=== PATIENT | male | born 1990 | race Hispanic/Latino ===

== ENCOUNTER 2017-04-05 09:15 | Inpatient (IN) | payer OTHER ==
[~2017-04-05] VITALS: Ht 175.3 cm; Wt 90.9 kg
[2017-04-05 09:34] VITALS: BP 164/109; PULSE 92; RESP 12; O2SAT 99
--- NOTE | 2017-04-05 09:47 | ED.REPORT ---
HPI-Hand Prob/Inj Date of Service Apr 05, 2017 ED Provider: Jose Bradley MD The pt is a 27 y/o male presenting to the ED due to R hand pain. The pt punctured his R 5th finger w/ a piece of metal and it began to swell and become red later than night. The pain then began to spread to the rest of his R hand. He reports also experiencing generalized myalgias. Denies chills, fevers, or diaphoresis. The pain in his hand is quite prominent and extends up to his distal forearm. Nursing Notes Stated Complaint: RIGHT ARM PAIN Chief Complaint: R hand pain Nursing Notes Reviewed: Yes Allergies: Coded Allergies: cefaclor (Verified Allergy, Unknown, CHILDHOOD ALLERGY, 04/05/17) No Active Prescriptions or Reported Meds General Time Seen by Provider: 10:20 Chief Complaint Hand pain right Hx Obtained From: Patient Arrived By: Walk-in Onset Occurred: Yesterday Symptom Duration: Since onset Recent Healthcare: No recent hospitalization, Recent doctor visit Similar Sx Previous: No Past Medical History Past Medical History None reported Past Surgical History None reported Smoking History Former Smoker Social History Pt uses a vape and is in the Other Social History: Good social support Ambulatory Status Independent Review of Systems R 5th finger pain, erythema, and swelling; Decreased ROM of R 5th finger; Constitutional: Denies: Chills, Fever Musculoskeletal: Reports: Extremity pain (R hand ), Myalgia Skin: Denies Diaphoresis Complete sys rev & neg: except as marked. Physical Exam Initial Vital Signs Vital Signs (First) Date Time Temp Pulse Resp B/P Pulse Ox O2 Delivery O2 Flow Rate FiO2 04/05/17 09:34 37.0 92 12 164/109 99 Room Air Initial VS: Reviewed General/Constitutional: Well-developed, Well-nourished Head / Eyes: Atraumatic, Normocephalic, PERRL ENT: Mucous membranes moist, Conjunctiva normal, No scleral icterus Neck: Supple, Non-tender, Full range of motion Respiratory: Breath sounds normal, Clear to auscultation, No respiratory distress Cardiovascular: Regular rate & rhythm, Heart sounds normal, Intact distal pulses Neurologic: Alert, Oriented, Nonfocal Psychiatric: Mood/affect normal, Behavior normal, Normal thought content Wrist / Hand: No deformity, Neurologic intact, Vascular intact Right Wrist: Positive: Tenderness present... (Moderate) Pinpoint entry point at palmar crease of MCP joint of 5th finger of the R hand w/ surrounding erythema, and w/ intense pain to minimal movement Pain w/ movement of R 4th finger as well Interpretation & Diagnostics Lab Results Interpretation Result Diagram: 04/05/17 1018 04/05/17 1018 Test 04/05/17 10:18 White Blood Count 10.5th/mm3 (3.8-10.1) Red Blood Count 5.38mil/mm3 (4.40-5.80) Hemoglobin 16.1g/dL (13.8-17.2) Hematocrit 44.8% (41.0-50.0) Mean Corpuscular Volume 83.3fL (81-100) Mean Corpuscular Hemoglobin 29.9pg (27.0-35.0) Mean Corpuscular Hemoglobin Concent 35.9% (32.0-37.0) Red Cell Distribution Width 12.3% (12.3-15.4) Platelet Count 251bil/L (150-400) Neutrophils (%) (Auto) 82.9% (40-74) Lymphocytes (%) (Auto) 8.6% (14-46) Monocytes (%) (Auto) 7.9% (4-12) Eosinophils (%) (Auto) 0.2% (0-5) Basophils (%) (Auto) 0.1% (0-3) Sodium Level 136mEq/L (134-144) Potassium Level 4.0mEq/L (3.5-5.2) Chloride Level 96mEq/L (97-108) Carbon Dioxide Level 20mmol/L (18-29) Blood Urea Nitrogen 9mg/dL (6-20) Creatinine 0.78mg/dL (0.76-1.27) Estimat Glomerular Filtration Rate 128mL/min (>59) Glucose Level 122mg/dL (60-99) Lactic Acid Level 2.5mmol/L (0.4-2.0) Calcium Level 9.0mg/dL (8.5-10.1) Total Bilirubin 0.9mg/dL (0.0-1.2) Aspartate Amino Transf (AST/SGOT) 36U/L (0-50) Alanine Aminotransferase (ALT/SGPT) 34U/L (0-44) Alkaline Phosphatase 105U/L (25-150) Total Protein 7.9g/dL (6.4-8.4) Albumin 4.5g/dL (3.4-5.0) X-Ray Interpretation Xray Interpretation: IMPRESSION: No radiopaque soft tissue foreign bodies. No acute bony injuries of the right hand. Dictated by: Jairo Sanchez M.D. on 04/05/2017 at 10:41 Approved by: Jairo Sanchez M.D. on 04/05/2017 at 10:42 X-Ray Ordered: Hand right Interpretation / Wet Read by: Interpret - ED physician Re-Eval/Medical Decision Med Decision/Clinical Course The patient was very reluctant to be hospitalized. He says that he does not really want to stay in the hospital. I told him multiple times that if he leaves he would be at great risk for permanent disability in his hand. Re-Evaluation/Progress : Time of Eval: 11:16 Re-Evaluation/Progress Note: Rechecked pt to examine his hand further. Discussed need for the pt to get his WBC levels tested in 6 hours as well as possible need for hand surgery. Informed pt of need for admission. Pt understands and agrees with plan for admission. All questions addressed. Consultation #1: Referral / Consult Name: Sanjay Townsend MD Consulted With: Surgeon Call Returned at: 11:12 Space Sciences Director: Will see patient Note: Discussed pt's case w/ Dr. Townsend, hand surgeon, who will see the pt tonight or tomorrow morning for further evaluation and possible need for surgery. He recommends testing the pt's WBC levels in 6 hours. Consultation #2: Referral / Consult Name: Mayelin White DO Consulted With: Hospitalist Call Returned at: 12:07 Space [employer] Director: Will see patient, Agrees with eval, Agrees with plan, Accepts admit Counseled Regarding: Diagnosis, Lab results, Need for admission Discharge & Departure Primary Impression: Tenosynovitis of finger and hand Disposition: ADMITTED TO HOSPITAL Discharge Condition All VS Reviewed: Yes Condition: Stable Referrals: Sanjay Townsend MD, Lucia C MD Scribe Attestation Portions of this note were transcribed by Diego Oconnell. I, Dr. Bradley personally performed the history, physical exam and medical decision-making; I reviewed and confirmed the accuracy of the information in the transcribed note. copies to: Sanjay Townsend MD; Felicitas Akers MD, Kirk H MD Apr 05, 2017 09:47 Diego Oconnell Apr 05, 2017 10:35
[2017-04-05] MEDS ORDERED: 0.9% Sodium Chloride 1,000 ML IV ONE ×2 (10:04→15:00)
[2017-04-05] MEDS ORDERED: Clindamycin Inj 900 MG in IV Premix 1 EACH IV ONE (10:05)
[2017-04-05] MEDS ORDERED: Meropenem Inj 500 MG in 0.9% Sodium Chloride 50 ML IV ONE (10:05)
[2017-04-05 10:29] LABS: BASOPHILS % (AUTO) 0.1 % (0-3); EOSINOPHILS % (AUTO) 0.2 % (0-5); MONOCYTES % (AUTO) 7.9 % (4-12); Mean Corpuscular Hemoglobin 29.9 pg (27.0-35.0); Mean Corpuscular Volume 83.3 fL (81-100); NEUTROPHILS % (AUTO) 82.9 % (40-74); Platelet Count 251 bil/L (150-400)
--- NOTE | 2017-04-05 10:43 | DRSVH ---
PROCEDURE: X-RAY RIGHT HAND, MINIMUM THREE VIEWS ([id number]) INDICATIONS: 27 year-old male with right hand puncture wound. TECHNIQUE: 3 views of the hand(s) acquired. COMPARISON: None. FINDINGS: Bones: No fractures or dislocations. Carpal bones are normally aligned. No bony erosions or destru ction. No suspicious bony lesions. Soft tissues: There is diffuse right fifth finger soft tissue swelling. No radiopaque soft tissue for eign bodies. IMPRESSION: No radiopaque soft tissue foreign bodies. No acute bony injuries of the right hand. Dictated by: Jairo Sanchez M.D. on 04/05/2017 at 10:41 Approved by: Jairo Sanchez M.D. on 04/05/2017 at 10:42
[2017-04-05 11:43] VITALS: BP 140/94; PULSE 98; RESP 16; O2SAT 98
[2017-04-05] MEDS ORDERED: Alum-Mag Hydrox-Simeth 30 mL Suspension PO PRN (12:10)
[2017-04-05] MEDS ORDERED: Ondansetron 2 mg/mL 2 mL Inj IVPUSH PRN (12:10)
[2017-04-05] MEDS ORDERED: Polyethylene Glycol (PEG) 17 Gm Powder PO PRN (12:10)
[2017-04-05] MEDS ORDERED: Acetaminophen IV 1,000 MG in IV Premix 1 EACH IV PRN (12:15)
[2017-04-05] MEDS ORDERED: Ketorolac 15 mg/mL Inj IVPUSH PRN (12:15)
[2017-04-05 12:53] VITALS: BP 146/91; PULSE 78; RESP 22; O2SAT 99
[2017-04-05] MEDS: 0.9% Sodium Chloride 1,000 ML IV SCH ×2 (12:54→17:03)
--- NOTE | 2017-04-05 13:04 | NUR ---
Admit to [facility] Pt arrived on [facility] at 1245 hrs. Alert and oriented x 3. PIV patent and asymptomatic. All personal possessions with pt. Pain is 3/10 per pt. Right 5 digit and hand is red and swollen. Small laceration noted at base of 5th digit on anterior aspect. Pt NPO as surgery today is possible.
--- NOTE | 2017-04-05 14:41 | PCM.HPMED ---
Subjective Date of Service Apr 05, 2017 Primary Provider: Admitting Physician: Mayelin White DO Primary Care Physician: Sam Attending Physician: Mayelin White DO Admit Status: From the Emergency Department Chief Complaint: Right hand pain History of Present Illness: This is a 27-year-old male with no particular past medical history presenting to the ER today due to a puncture wound that happened to him yesterday during the work. 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 He did not think much about it but noticed that it has more's swollen and became moderately erythematous last night. He states that the wound actually looked bigger in the a.m. and he came to the ER after friend advised him to get it checked. He states that he was unable to move his hand and fingers very well last night but this morning, after he came to the ER and received antibiotics, he is able to move his fingers better. He has no numbness and tingling. Hand surgeon Dr. Townsend is present in the room and explained to patient the possible operative procedure that he may perform. After discussing the case with the surgeon, patient opted to wait to to see if the pain would get worse or better overnight. In the ER patient's labs were fairly unremarkable white count is elevated minimally at 10.5. Patient is admitted to the [facility] [place] team for management of tenosynovitis of the right fifth finger. Patient was given clindamycin and meropenem IV. Patient is admitted to the [place] team with the orthopedic consult for possible hand open I&D by Dr. Townsend Review of Systems: Complete review of systems performed, pertinent positives and negatives per history of present illness, all other systems reviewed and are negative. 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 External ears without defect. Pupils equal, round, and reactive to light and accommodation. Anicteric sclerae, moist conjunctivae, and no lid lag. Oropharynx free of erythema and cobble stoning with moist mucosa. Neck: Supple with full range of motion. No jugular venous distension. No bruits. No lymphadenopathy or thyromegaly. Cardiovascular: Regular rate and rhythm with no murmurs, rubs, or gallops appreciated Pulmonary: Clear to auscultation bilaterally with no crackles, wheezes, or rhonchi. Normal respiratory effort with no use of accessory muscles. Abdomen: Bowel tones present. Soft, mildly tender diffusely, nondistended. No hepatosplenomegaly or masses appreciated. Extremities: No clubbing, cyanosis, edema, or lymphadenopathy appreciated. Skin: Normal temperature, turgor, and texture; no rash, ulcers, or subcutaneous nodules appreciated. Neurological: Cranial nerves grossly intact. Normal muscle strength, tone, and bulk. Reflexes, coordination, and sensory function within normal limits. No known gait impairment. Psychiatric: Normal mood and affect. Alert and oriented to person, place, and time. Swollen right pinky finger more erythematous on the medial side is a small puncture wound at the MCP joint tender to touch below the MCP and the soft tissue as well as abdominal the injury. He has no neuropathic signs is able to move the finger in all different directions which he says he was not able to do this morning. He is able to externally and internally deviated the hand and finger and hand appears to be more swollen however then the left hand Lab and Diagnostics Result Diagram: 04/05/17 1018 04/05/17 1018 Assessment & Plan Assessment #1. Acute synovitis of right fifth finger erythema and swelling, present on admission -- Continue Antibiotics meropenem, clindamycin -- Consult hand surgeon Dr. Townsend ER has already notified him, has seen the patient, plans to wait for surgery. patient will remain nothing by mouth. Repeat CBC and ESR and CRP at [address] Townsend wants to advance diet tonight if there is no decision to proceed with surgery. He will decide after following up on the labs and the patient whether to proceed with surgery or not -- Tylenol, morphine IV, ketorolac for pain control. He will medications oxycodone Tylenol and ibuprofen -- Nothing by mouth after midnight -- We will hold off on MRI, his injuries to acute and there may be too much edema Assessment #2 hand pain acute with another admission -- Pain control as above Assessment #3 Lactic acidosis present on admission -- 2.5 at the time of admission -- A liter of bolus fluids were given on the floor -- Continue IV hydration normal saline 100 mL/h -- Recheck lactic acid Assessment #4 Overweight pleasant and admission chronic -- Patient appears to be in healthy shape in spite of his BMI High-risk medications: IV morphine CODE STATUS: Full code Alternate decision-maker: Sister Jorgito Patient is admitted under Inpatient status with expected length of stay greater than 2 midnights due to severity of presenting symptoms, risk of adverse event, and complexity of treatment plan. Pain Evaluation: Adequate Pain Control Resuscitation Status: CPR: Attempt Resuscitation (Sr. Bull) Time spent 45 min Mayelin White DO Apr 05, 2017 14:41
[2017-04-05 17:01] LABS: BASOPHILS % (AUTO) 0.1 % (0-3); EOSINOPHILS % (AUTO) 0.2 % (0-5); MONOCYTES % (AUTO) 10.9 % (4-12); Mean Corpuscular Hemoglobin 29.9 pg (27.0-35.0); Mean Corpuscular Volume 83.4 fL (81-100); Platelet Count 244 bil/L (150-400)
[2017-04-05 17:41] VITALS: BP 149/91; PULSE 82; RESP 20; O2SAT 97
[2017-04-05] MEDS: Meropenem Inj 500 MG in 0.9% Sodium Chloride 50 ML IV SCH (19:55)
[2017-04-05 20:46] VITALS: BP 147/91; PULSE 89; RESP 20; O2SAT 97
--- NOTE | 2017-04-05 21:00 | NUR ---
Activity Dr Townsend gave OK for pt to eat after reviewing labs and since pt condition slightly improving. Pt now able to bend/move right 5th finger with more ease. Pain minimal with activity 08/06 and pt denies need for pain meds. Denies numbness, tingling and pt reports edema/redness unchanged. Pt was able to have dinner and then orders to be NPO at midnight.
[2017-04-06] MEDS: 0.9% Sodium Chloride 1,000 ML IV SCH (01:20)
[2017-04-06 01:29] VITALS: BP 133/87; PULSE 76; RESP 18; O2SAT 98
[2017-04-06] MEDS: Meropenem Inj 500 MG in 0.9% Sodium Chloride 50 ML IV SCH ×2 (04:05→11:36)
[2017-04-06 05:08] VITALS: BP 144/91; PULSE 80; RESP 18; O2SAT 98
[2017-04-06 06:04] LABS: Mean Corpuscular Hemoglobin 29.7 pg (27.0-35.0); Mean Corpuscular Volume 83.3 fL (81-100)
[2017-04-06 08:20] VITALS: BP 135/95; PULSE 76; RESP 20; O2SAT 98
[2017-04-06 12:04] VITALS: BP 138/82; PULSE 77; RESP 20; O2SAT 97
--- NOTE | 2017-04-06 13:46 | NUR ---
Social Work- Screening/Readiness for Discharge/Multidisciplinary Rounds Data: EMR reviewed. Pt is a 27 year old male admitted for flexor tenosynovitis per H&P. Pt's insurance is [employer]. Pt has no PCP listed. Pt's readmit risk score is not listed at this time. Pt's NOK is sister Jorgito. Pt discussed in multidisciplinary rounds, no SW needs identified in rounds. Pt is independent at baseline and no concerns related to pt's capacity for self-care SW met with pt at bedside regarding discharge plan, pt resides in [place], [facility]. Pt is independent at baseline and drives. Pt is looking into a PCP at this time but does not currently have one. Pt has no DPOA on file, declined information. Pt to either drive himself home or his sister will drive him. No anticipated d/c needs. SW will continue to follow. Assessment: Pt who is independent at baseline. Plan: Pt to either drive himself home or his sister will drive him. No anticipated d/c needs. SW will continue to follow. OMI [facility]
[2017-04-06] MEDS ORDERED: CLIN-78 PO (14:32)
[2017-04-06] MEDS ORDERED: LEVO750T9 PO (14:32)
[2017-04-06] MEDS ORDERED: LACT1CAP26 PO (14:33)
--- NOTE | 2017-04-06 14:35 | PCM.DIMED ---
Discharge Instructions Date of Service Apr 06, 2017 Dates of Hospitalization Apr 05, 2017 at 12:15 Call your provider Call your provider for: Fever or Chills, Shortness of breath, Bleeding, Chest pain, Vomitting, Excessive diarrhea, Weakness (unilateral), Other Patient Instructions Patient Instructions Follow up with hand surgeon Dr. Townsend in 7 days, his clinic # is [phone], call his office if you see any worsening of symptoms fevers, chills, hand pain or swelling prior to the appt. Please rest the hand till Friday, call Dr. Townsend's clinic for work instructions on Friday the 04/08/17 Follow-up plan Follow up with hand surgeon Dr. Townsend in 7 days, his clinic # is [phone], call his office if you see any worsening of symptoms fevers, chills, hand pain or swelling prior to the appt. Follow up with PCP at [facility] Residency clinic in 7-10 days Mayelin White DO Apr 06, 2017 12:48
--- NOTE | 2017-04-06 14:41 | PCM.DC.MED ---
Discharge Summary Date of Service Apr 06, 2017 Dates of Hospitalization Date of Hospital Admission Apr 05, 2017 at 12:15 Date of Discharge: Apr 06, 2017 Providers: Admitting Physician: Dat Ruiz DO Primary Care Physician: Sma Attending Physician: Dat Ruiz DO Diagnosis at Time of Discharge Diagnosis at Time of Discharge Tenosynovitis right hand and last finger, lactic acidosis Brief History This is a 27-year-old male with no particular past medical history presenting to the ER today due to a puncture wound that happened to him yesterday during the work. 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 He did not think much about it but noticed that it has more's swollen and became moderately erythematous last night. He states that the wound actually looked bigger in the a.m. and he came to the ER after friend advised him to get it checked. He states that he was unable to move his hand and fingers very well last night but this morning, after he came to the ER and received antibiotics, he is able to move his fingers better. He has no numbness and tingling. Hand surgeon Dr. Townsend is present in the room and explained to patient the possible operative procedure that he may perform. After discussing the case with the surgeon, patient opted to wait to to see if the pain would get worse or better overnight. In the ER patient's labs were fairly unremarkable white count is elevated minimally at 10.5. Patient is admitted to the [facility] under [place] team for management of tenosynovitis of the right fifth finger. Patient was given clindamycin and meropenem IV. Patient is admitted to the [place] team with the orthopedic consult for possible hand open I&D by Dr. Townsend [facility] Course Assessment #1. Acute synovitis of right fifth finger erythema and swelling, present on admission -- IV Antibiotics meropenem, clindamycin were given -- hand surgeon Dr. Townsend was consulted and he has seen the patient, and decided that patient can be managed with the conservative antibiotic management -- Tylenol, morphine IV, ketorolac for pain control. Patient did not take much medication during the stay Assessment #2 hand pain acute with another admission -- Pain control as above -- Patient did not need much pain medication during the stay, recommend that he takes Tylenol and ibuprofen at home -- Patient may resume working then his hand surgeon Dr. Tonwsend clears him Assessment #3 Lactic acidosis present on admission resolved -- 2.5 at the time of admission -- A liter of bolus fluids were given on the floor -- Continued IV hydration normal saline 100 mL/h -- Resolved on the day of admission Assessment #4 Overweight pleasant and admission chronic -- Patient appears to be in healthy shape in spite of his BMI High-risk medications: IV morphine CODE STATUS: Full code Alternate decision-maker: Sister Jorgito Patient is admitted under Inpatient status with expected length of stay greater than 2 midnights due to severity of presenting symptoms, risk of adverse event, and complexity of treatment plan. Exam Vital Signs (Last) Date Time Temp Pulse Resp B/P Pulse Ox O2 Delivery O2 Flow Rate FiO2 04/06/17 12:04 36.8 77 20 138/82 97 Room Air Exam General: No acute distress, frail elderly woman, appropriately interactive HEENT: Normocephalic, atraumatic. Neck: Supple with full range of motion. No jugular venous distension. No bruits. Cardiovascular: Regular rate and rhythm with no murmurs, rubs, or gallops appreciated Pulmonary: Clear to auscultation bilaterally with no crackles, wheezes, or rhonchi. Normal respiratory effort with no use of accessory muscles. Abdomen: Soft, nondistended Extremities: Swelling in the right hand has improved, range of movement has improved as well. Improved range of motion in right hand, Psychiatric: Normal mood and affect. Alert and oriented to person, place, and time. Neurological: 1+ reflexes and triceps Vascular: Radial pulses equal and symmetric Skin: Swollen right pinky finger more erythematous on the medial side is a small puncture wound at the MCP joint tender to touch below the MCP and the soft tissue as well as abdominal the injury. He has no neuropathic signs is able to move the finger in all different directions which he says he was not able to do this morning. He is able to externally and internally deviated the hand and finger and hand appears to be much improved in terms of swelling compared to yesterday. Test 04/05/17 16:52 04/05/17 17:36 04/06/17 05:52 Neutrophils (%) (Auto) 74.0% (40-74) Lymphocytes (%) (Auto) 14.7% (14-46) Monocytes (%) (Auto) 10.9% (4-12) Eosinophils (%) (Auto) 0.2% (0-5) Basophils (%) (Auto) 0.1% (0-3) Lactic Acid Level 0.8mmol/L (0.4-2.0) Total Bilirubin 1.6mg/dL (0.0-1.2) Aspartate Amino Transf (AST/SGOT) 28U/L (0-50) Alanine Aminotransferase (ALT/SGPT) 28U/L (0-44) Alkaline Phosphatase 91U/L (25-150) Total Protein 7.4g/dL (6.4-8.4) Albumin 4.0g/dL (3.4-5.0) White Blood Count 6.6th/mm3 (3.8-10.1) Red Blood Count 4.92mil/mm3 (4.40-5.80) Hemoglobin 14.6g/dL (13.8-17.2) Hematocrit 41.0% (41.0-50.0) Mean Corpuscular Volume 83.3fL (81-100) Mean Corpuscular Hemoglobin 29.7pg (27.0-35.0) Mean Corpuscular Hemoglobin Concent 35.6% (32.0-37.0) Red Cell Distribution Width 12.2% (12.3-15.4) Platelet Count 228bil/L (150-400) Erythrocyte Sedimentation Rate 10mm/hr (0-15) Sodium Level 138mEq/L (134-144) Potassium Level 4.4mEq/L (3.5-5.2) Chloride Level 102mEq/L (97-108) Carbon Dioxide Level 21mmol/L (18-29) Blood Urea Nitrogen 8mg/dL (6-20) Creatinine 0.59mg/dL (0.76-1.27) Estimat Glomerular Filtration Rate 176mL/min (>59) Glucose Level 90mg/dL (60-99) Calcium Level 8.7mg/dL (8.5-10.1) C-Reactive Protein 9.6mg/dL (0.0-0.5) Discharge Medications Discharge Medications Clindamycin (Clindamycin) 300 Mg Capsule 300 MG PO QID Prescribed by: DAT A RUIZ, DO Lactobacillus Acidophilus (Acidophilus) 1 Each Capsule 1 EACH PO BIDWM Prescribed by: DAT RUIZ DO Levofloxacin (Levaquin) 750 Mg Tablet 750 MG PO DAILY Prescribed by: DAT RUIZ DO Followup Plan Follow-up plan Follow up with hand surgeon Dr. Townsend in 7 days, his clinic # is [id number] [phone], call his office if you see any worsening of symptoms fevers, chills, hand pain or swelling prior to the appt. Follow up with PCP at [facility] Residency clinic in 7-10 days Patient Instructions Follow up with hand surgeon Dr. Townsend in 7 days, his clinic # is [phone], call his office if you see any worsening of symptoms fevers, chills, hand pain or swelling prior to the appt. Please rest the hand till Friday, call Dr. Townsend's clinic for work instructions on Friday the 04/08/17 Time spent 35 min Attending Statement Upon re-review, patient's admission disposition is changed to observation as patient did not meet the criteria for inpatient stay due to his symptoms and management Dat Ruiz DO Apr 06, 2017 14:35
--- NOTE | 2017-04-06 16:31 | NUR ---
Discharge Pt d/c'd from [facility] room 1028 home via private vehicle. All discharge instructions and teachings done with pt at bedside. IV d/c'd intact. No items in the safe or pharmacy. VSS. Pt to f/u with hand surgeon in 1 week.
== END 2017-04-06 16:29 | disposition home or self-care (01) | DRG 558 ==
LOC: SED 09:15 → OSC 12:11 → OBSVTOIN 12:11 → INTOOBSV 12:15
PROVIDERS: ADMIT Family Medicine; ATTEND Family Medicine
DX: M65.141 Other infective (teno)synovitis, right hand (principal); E87.2 Acidosis; W20.8XXA Other cause of strike by thrown, projected or falling object, initial encounter; Y99.1 Military activity